=== PATIENT | female | born 1960 | race African-American/Black ===

== ENCOUNTER 2017-07-20 10:58 | Emergency (ER) | payer SELFPAY ==
[2017-07-20 11:01] VITALS: BP 161/86; PULSE 71; RESP 14; TEMP 98.2; O2SAT 98
--- NOTE | 2017-07-20 12:18 | PD ---
HPI Chief Complaint: Medication Refill Request Time Seen by Provider: 12:11 Travel History International Travel<30 days: No Contact w/Intl Traveler<30days: No Traveled to known affect area: No History of Present Illness HPI 57-year-old female presents to emergency department requesting a refill of her blood pressure medication. States that she has been out of her medication for a couple of days and has had multiple episodes of high blood pressure and she would like to be treated this point. Patient denies any other issues regarding her blood pressure. Denies headache, dizziness, blurred vision, nausea or vomiting. She is also concerned about a rash that she has on her left upper chest and back. States that she had shingles at that area last year but still has pain in the area. Currently she has been scratching the area because it has been burning and itching. Patient states the pain is mild but is concerned this is a serious condition. Patient denies fever, chills, chest pain, shortness of breath. She has no other complaints today. She is from [place] along with her primary care physician. [facility] Past Medical History Cardiovascular Problems: Yes (HTN) Diabetes: Yes Patient Takes Glucophage: No Social History Alcohol Use: Yes (4 BEERS A DAY ) Tobacco Use: Yes Substance Use: No Allergies-Medications (Allergen,Severity, Reaction): Coded Allergies: No Known Allergies (Unverified , 07/20/17) Reported Meds & Prescriptions Reported Meds & Active Scripts Active Neurontin (Gabapentin) 100 Mg Cap 100 Mg PO BID [address] while on this medication. Use only as directed and as needed. Amlodipine (Amlodipine Besylate) 10 Mg Tab 10 Mg PO DAILY Review of Systems Except as stated in HPI: all other systems reviewed are Neg Physical Exam Narrative GENERAL: Well-nourished, well-developed patient. SKIN: Focused skin assessment warm/dry. Left upper chest-obvious deep excoriation without exudate or edema. Areas of healing around the posterior neck and superior aspect of the posterior shoulder. No evidence of lymphangitic Spread or cellulitis. To the left of the rash is a port. HEAD: Normocephalic. EYES: No scleral icterus. No injection or drainage. NECK: Supple, trachea midline. No JVD or lymphadenopathy. GASTROINTESTINAL: Abdomen soft, non-tender, nondistended. MUSCULOSKELETAL: No cyanosis, or edema. BACK: Nontender without obvious deformity. No CVA tenderness. Data Data Last Documented VS Vital Signs Date Time Temp Pulse Resp B/P (MAP) Pulse Ox O2 Delivery O2 Flow Rate FiO2 07/20/17 11:01 98.2 71 14 161/86 (111) 98 Orders Orders Ed Discharge Order (07/20/17 12:20) MDM Medical Decision Making Medical Screen Exam Complete: Yes Emergency Medical Condition: Yes Differential Diagnosis Posthepatic neuralgia versus cellulitis versus erysipelas High blood pressure versus malignant hypertension versus accelerated hypertension Narrative Course 57-year-old female presents to emergency department requesting a refill of her blood pressure medication. States that she has been out of her medication for a couple of days and has had multiple episodes of high blood pressure and she would like to be treated this point. Patient denies any other issues regarding her blood pressure. Denies headache, dizziness, blurred vision, nausea or vomiting. She is also concerned about a rash that she has on her left upper chest and back. States that she had shingles at that area last year but still has pain in the area. Currently she has been scratching the area because it has been burning and itching. Patient states the pain is mild but is concerned this is a serious condition. Patient denies fever, chills, chest pain, shortness of breath. She has no other complaints today. She is from [place] along with her primary care physician. Vital signs stable, blood pressure slightly elevated Physical exam- consistent with irritation to the left upper chest and back. Excoriations present without evidence of cellulitis or erysipelas. She has history of cancer but is no longer being treated. She still has the port in place. Amlodipine refill today. Prescribed Neurontin for her postherpetic neuralgia. Advised extreme caution when using this medication. Patient to follow up with her primary care physician within 2-3 days. Return to the emergency department for worsening symptoms. Diagnosis Primary Impression: HTN (hypertension) Qualified Codes: I10 - Essential (primary) hypertension Additional Impressions: Post herpetic neuralgia Encounter for medication refill Referrals: [facility] Additional Instructions: Follow-up with her primary care physician as soon as possible. Use pain medication sparingly. If her symptoms worsen or persists return to the emergency department Scripts Gabapentin (Neurontin) 100 Mg Cap 100 MG PO BID for 10 Days, #20 CAP 0 [address]ills [address] while on this medication. Use only as directed and as needed. Prov: Ward Fairchild MD 07/20/17 Amlodipine (Amlodipine) 10 Mg Tab 10 MG PO DAILY for Blood Pressure Management, #30 TAB 0 Refills Prov: Ward Fairchild MD 07/20/17 Disposition: 01 DISCHARGE HOME Condition: Stable Kimberley Lara Jul 20, 2017 12:18
[2017-07-20] MEDS ORDERED: NEUR100C PO (12:28)
[2017-07-20] MEDS ORDERED: AMLO10TA2 PO (12:28)
== END 2017-07-20 12:42 | disposition home or self-care (01) ==
LOC: NEPK 10:58
DX: Z76.0 Encounter for issue of repeat prescription (principal); I10 Essential (primary) hypertension; B02.29 Other postherpetic nervous system involvement; R21 Rash and other nonspecific skin eruption; E11.9 Type 2 diabetes mellitus without complications; Z72.0 Tobacco use; Z79.899 Other long term (current) drug therapy
CPT/HCPCS: 99281

== ENCOUNTER 2017-09-03 10:33 | Emergency (ER) | payer SELFPAY ==
[~2017-09-03] VITALS: Ht 167.6 cm; Wt 54.5 kg
[2017-09-03 10:33] VITALS: BP 105/64; PULSE 94; RESP 18; TEMP 102.5; O2SAT 94
[~2017-09-03 10:33] MED LIST: AMLO10TA2 PO; NEUR100C PO
[2017-09-03 10:50] VITALS: BP 148/75; PULSE 97; RESP 18; TEMP 100.5; O2SAT 98
--- NOTE | 2017-09-03 11:39 | PD ---
HPI Chief Complaint: Cold / Flu Symptoms Time Seen by Provider: 11:03 Travel History International Travel<30 days: No Contact w/Intl Traveler<30days: No Traveled to known affect area: No History of Present Illness HPI 57-year-old female female presents emergency department for evaluation of cough and nasal congestion 1 week. Patient states she is coughing up thick white phlegm intermittently. She states the cough is worse at night. She still smokes a pack cigarettes a day. She is not sure if she has been running fevers at home however she is febrile here in triage in our facility. Patient states she has a lot of sinus pressure and has intermittent headaches. Patient has history of diabetes and cancer. Patient states she is unsure what type of cancer was. She did state that she received chemotherapy and radiation last year for though. Patient has a left upper chest port still in place. Patient is complaining of body aches and is restless on the stretcher. PFSH Past Medical History Cancer: Yes ("throat last year") Cardiovascular Problems: Yes (HTN) Diabetes: Yes Patient Takes Glucophage: Yes Social History Alcohol Use: Yes (4 BEERS A DAY ) Tobacco Use: Yes (1 ppd) Substance Use: No Allergies-Medications (Allergen,Severity, Reaction): Coded Allergies: No Known Allergies (Unverified , 07/20/17) Reported Meds & Prescriptions Reported Meds & Active Scripts Active Azithromycin 250 Mg Tab 250 Mg PO DIRECTED Take 2 tabs (500 mg) on day 1 then 1 tab daily x 4 days. Neurontin (Gabapentin) 100 Mg Cap 100 Mg PO BID [address] while on this medication. Use only as directed and as needed. Amlodipine (Amlodipine Besylate) 10 Mg Tab 10 Mg PO DAILY Review of Systems Except as stated in HPI: all other systems reviewed are Neg General / Constitutional: Positive: Fever Respiratory: Positive: Cough Physical Exam Narrative GENERAL: Well-nourished, well-developed 57-year-old female in no acute respiratory distress. Coughing intermittent throughout physical exam. SKIN: Focused skin assessment warm/dry. HEAD: Atraumatic. Normocephalic. EYES: Pupils equal and round. No scleral icterus. No injection or drainage. ENT: No nasal bleeding or discharge. Mucous membranes pink and moist. NECK: Trachea midline. No JVD. CARDIOVASCULAR: Regular rate and rhythm. No murmur appreciated. RESPIRATORY: No accessory muscle use. Clear to auscultation. Breath sounds equal bilaterally. GASTROINTESTINAL: Abdomen soft, non-tender, nondistended. Hepatic and splenic margins not palpable. MUSCULOSKELETAL: No obvious deformities. No clubbing. No cyanosis. No edema. NEUROLOGICAL: Awake and alert. No obvious cranial nerve deficits. Motor grossly within normal limits. Normal speech. PSYCHIATRIC: Anxious mood and affect. Restless in stretcher. Data Data Last Documented VS Vital Signs Date Time Temp Pulse Resp B/P (MAP) Pulse Ox O2 Delivery O2 Flow Rate FiO2 09/03/17 13:01 100.3 98 18 183/82 (115) 97 Room Air Orders Orders Electrocardiogram (09/03/17 11:14) Complete Blood Count With Diff (09/03/17 11:14) Comprehensive Metabolic Panel (09/03/17 11:14) Lactic Acid Sepsis Protocol (09/03/17 11:14) Magnesium (Mg) (09/03/17 11:14) Ckmb (Isoenzyme) Profile (09/03/17 11:14) Troponin I (09/03/17 11:14) Urinalysis - C+S If Indicated (09/03/17 11:14) Influenzae A/B Antigen (09/03/17 11:14) Blood Culture (09/03/17 11:14) Chest, Single Ap (09/03/17 11:14) Blood Glucose (09/03/17 11:14) Ecg Monitoring (09/03/17 11:14) Iv Access Insert/Monitor (09/03/17 11:14) Oximetry (09/03/17 11:14) Oxygen Administration (09/03/17 11:14) Sodium Chlor 0.9% 1000 Ml Inj (Ns 1000 M (09/03/17 12:15) CKMB (09/03/17 11:23) CKMB% (09/03/17 11:23) Ibuprofen (Motrin) (09/03/17 13:00) Ed Discharge Order (09/03/17 13:36) Labs Laboratory Tests Test 09/03/17 11:20 09/03/17 11:23 Lactic Acid Level 1.8 mmol/L White Blood Count 8.2 TH/MM3 Red Blood Count 4.50 MIL/MM3 Hemoglobin 14.5 GM/DL Hematocrit 42.5 % Mean Corpuscular Volume 94.3 FL Mean Corpuscular Hemoglobin 32.3 PG Mean Corpuscular Hemoglobin Concent 34.2 % Red Cell Distribution Width 14.3 % Platelet Count 287 TH/MM3 Mean Platelet Volume 9.0 FL Neutrophils (%) (Auto) 85.4 % Lymphocytes (%) (Auto) 8.1 % Monocytes (%) (Auto) 5.4 % Eosinophils (%) (Auto) 0.1 % Basophils (%) (Auto) 1.0 % Neutrophils # (Auto) 7.0 TH/MM3 Lymphocytes # (Auto) 0.7 TH/MM3 Monocytes # (Auto) 0.4 TH/MM3 Eosinophils # (Auto) 0.0 TH/MM3 Basophils # (Auto) 0.1 TH/MM3 CBC Comment DIFF FINAL Differential Comment Blood Urea Nitrogen 25 MG/DL Creatinine 1.65 MG/DL Random Glucose 162 MG/DL Total Protein 8.1 GM/DL Albumin 3.5 GM/DL Calcium Level 9.0 MG/DL Magnesium Level 2.1 MG/DL Alkaline Phosphatase 142 U/L Aspartate Amino Transf (AST/SGOT) 57 U/L Alanine Aminotransferase (ALT/SGPT) 32 U/L Total Bilirubin 0.4 MG/DL Sodium Level 130 MEQ/L Potassium Level 4.0 MEQ/L Chloride Level 92 MEQ/L Carbon Dioxide Level 28.1 MEQ/L Anion Gap 10 MEQ/L Estimat Glomerular Filtration Rate 39 ML/MIN Total Creatine Kinase 166 U/L Creatine Kinase MB 0.8 NG/ML Troponin I LESS THAN 0.02 NG/ML MDM Medical Decision Making Medical Screen Exam Complete: Yes Emergency Medical Condition: Yes Differential Diagnosis Differential diagnosis include but not limited to pneumonia, influenza, bronchitis, URI, viral syndrome, sepsis Narrative Course Patient placed on monitor and IV obtained. Blood work sent to the lab. CBC, CMP , lactic acid, magnesium, troponin, CK-MB, U/A and influenza ordered and pending. Chest x-ray ordered and pending. 1L NS bolus given. Ibuprofen given. CBC shows no acute abnormality CMP shows mild hyponatremia, 1L NS bolus already administered Lactic Acid within normal limits at 1.8 Mag within normal limits at 2.1. Trop is within normal limits at less than 0.02 CK-MB is within normal limits 0.8 Influenza is positive for flu A antigen. Chest x-ray is clear. Patient feeling much relief after ibuprofen and normal saline bolus. Patient case discussed with my attending, Dr. Milligan. Tamiflu treatment deferred due to length of time symptoms have been present. Patient given a Z-Willy for bronchitis and presents secondary infection due to her comorbidities. Patient discharged home with instructions to stop smoking, supportive care and to return to the emergency department with any worsening condition. Patient verbalizes understanding of reasons to return to the ED and states she will with worsening condition. Diagnosis Primary Impression: Influenza Referrals: Primary Care Physician Patient Instructions: General Instructions, Influenza (DC) Additional Instructions: Please return to emergency department if your symptoms return or worsen. Follow up with your primary care provider. Supportive care, stay hydrated, get enough rest, diet as tolerated. Alternate ibuprofen and Tylenol as needed for pain or fevers. Med/Other Pt SpecificInfo: Prescription(s) given Scripts Azithromycin (Azithromycin) 250 Mg Tab 250 MG PO DIRECTED for Infection, #6 TAB 0 Refills Take 2 tabs (500 mg) on day 1 then 1 tab daily x 4 days. Prov: Abbey Rice 09/03/17 Disposition: DISCHARGE HOME Condition: Stable Abbey Rice Sep 03, 2017 11:39
[2017-09-03 11:40] VITALS: RESP 18; O2SAT 99
[2017-09-03 11:48] LABS: BASOPHIL # 0.1 TH/MM3 (0-0.2); EOSINOPHIL % 0.1 % (0.0-4.0); HEMATOCRIT 42.5 % (35.0-46.0); HEMOGLOBIN 14.5 GM/DL (11.6-15.3); LYMPH % 8.1 % (9.0-44.0); LYMPHOCYTE # 0.7 TH/MM3 (1.0-4.8); MEAN CELL VOLUME 94.3 FL (80.0-100.0); MEAN CORPUSCULAR HEMOGLOBIN 32.3 PG (27.0-34.0); MEAN CORPUSCULAR HGB CONC 34.2 % (32.0-36.0); MONO % 5.4 % (0.0-8.0); MONOCYTE # 0.4 TH/MM3 (0-0.9); NEUT % 85.4 % (16.0-70.0); PLATELET COUNT 287 TH/MM3 (150-450); RED CELL DISTRIBUTION WIDTH 14.3 % (11.6-17.2); WHITE BLOOD COUNT 8.2 TH/MM3 (4.0-11.0)
[2017-09-03 12:11] LABS: ALBUMIN 3.5 GM/DL (3.4-5.0); AST (GOT) 57 U/L (15-37); BICARBONATE 28.1 MEQ/L (21.0-32.0); BLOOD UREA NITROGEN 25 MG/DL (7-18); CHLORIDE 92 MEQ/L (98-107); CREATININE 1.65 MG/DL (0.50-1.00); GLOMERULAR FILTRATION RATE 39 ML/MIN (>89); GLUCOSE,RANDOM 162 MG/DL (74-106); MAGNESIUM 2.1 MG/DL (1.5-2.5); SODIUM (NA) 130 MEQ/L (136-145)
[2017-09-03] MEDS ORDERED: SODIUM CHLOR 0.9% 1000 ML INJ 1,000 ML IV ONE (12:15)
[2017-09-03 12:27] LABS: ALKALINE PHOSPHATASE 142 U/L (45-117); ALT (GPT) 32 U/L (10-53); TOTAL BILIRUBIN ADULT 0.4 MG/DL (0.2-1.0); TOTAL PROTEIN 8.1 GM/DL (6.4-8.2); TROPONIN I LESS THAN 0.02 NG/ML (0.02-0.05)
--- NOTE | 2017-09-03 12:32 | RADRPT ---
EXAM DATE/TIME: 09/03/2017 11:36 [facility] COMPARISON: No previous studies available for comparison. INDICATIONS : Cough, congestion, fever. MEDICAL HISTORY : None. SURGICAL HISTORY : None. ENCOUNTER: Initial ACUITY: 1 week PAIN SCORE: 0/10 LOCATION: Bilateral chest FINDINGS: A single view of the chest demonstrates the lungs to be symmetrically aerated without evidence of mas s, infiltrate or effusion. The cardiomediastinal contours are unremarkable. Osseous structures are intact. The left-sided [id number] tip is projected over the distal superior vena cava. No evidence of pneumothorax. CONCLUSION: The lungs are clear. Alejandro Chen MD on September 03, 2017 at 12:30 Board Certified Radiologist. This report was verified electronically.
[2017-09-03] MEDS ORDERED: IBUPROFEN 600 MG TAB PO ONE (13:00)
[2017-09-03 13:01] VITALS: BP 183/82; PULSE 98; RESP 18; TEMP 100.3; O2SAT 97
[2017-09-03] MEDS ORDERED: AZIT250T3 PO (13:11)
--- NOTE | 2017-09-03 13:11 | PD ---
Data Data Last Documented VS Vital Signs Date Time Temp Pulse Resp B/P (MAP) Pulse Ox O2 Delivery O2 Flow Rate FiO2 09/03/17 13:01 100.3 98 18 183/82 (115) 97 Room Air Orders Orders Electrocardiogram (09/03/17 11:14) Complete Blood Count With Diff (09/03/17 11:14) Comprehensive Metabolic Panel (09/03/17 11:14) Lactic Acid Sepsis Protocol (09/03/17 11:14) Magnesium (Mg) (09/03/17 11:14) Ckmb (Isoenzyme) Profile (09/03/17 11:14) Troponin I (09/03/17 11:14) Urinalysis - C+S If Indicated (09/03/17 11:14) Influenzae A/B Antigen (09/03/17 11:14) Blood Culture (09/03/17 11:14) Chest, Single Ap (09/03/17 11:14) Blood Glucose (09/03/17 11:14) Ecg Monitoring (09/03/17 11:14) Iv Access Insert/Monitor (09/03/17 11:14) Oximetry (09/03/17 11:14) Oxygen Administration (09/03/17 11:14) Sodium Chlor 0.9% 1000 Ml Inj (Ns 1000 M (09/03/17 12:15) CKMB (09/03/17 11:23) CKMB% (09/03/17 11:23) Ibuprofen (Motrin) (09/03/17 13:00) Ed Discharge Order (09/03/17 13:36) Labs Laboratory Tests Test 09/03/17 11:20 09/03/17 11:23 09/03/17 14:07 Lactic Acid Level 1.8 mmol/L White Blood Count 8.2 TH/MM3 Red Blood Count 4.50 MIL/MM3 Hemoglobin 14.5 GM/DL Hematocrit 42.5 % Mean Corpuscular Volume 94.3 FL Mean Corpuscular Hemoglobin 32.3 PG Mean Corpuscular Hemoglobin Concent 34.2 % Red Cell Distribution Width 14.3 % Platelet Count 287 TH/MM3 Mean Platelet Volume 9.0 FL Neutrophils (%) (Auto) 85.4 % Lymphocytes (%) (Auto) 8.1 % Monocytes (%) (Auto) 5.4 % Eosinophils (%) (Auto) 0.1 % Basophils (%) (Auto) 1.0 % Neutrophils # (Auto) 7.0 TH/MM3 Lymphocytes # (Auto) 0.7 TH/MM3 Monocytes # (Auto) 0.4 TH/MM3 Eosinophils # (Auto) 0.0 TH/MM3 Basophils # (Auto) 0.1 TH/MM3 CBC Comment DIFF FINAL Differential Comment Blood Urea Nitrogen 25 MG/DL Creatinine 1.65 MG/DL Random Glucose 162 MG/DL Total Protein 8.1 GM/DL Albumin 3.5 GM/DL Calcium Level 9.0 MG/DL Magnesium Level 2.1 MG/DL Alkaline Phosphatase 142 U/L Aspartate Amino Transf (AST/SGOT) 57 U/L Alanine Aminotransferase (ALT/SGPT) 32 U/L Total Bilirubin 0.4 MG/DL Sodium Level 130 MEQ/L Potassium Level 4.0 MEQ/L Chloride Level 92 MEQ/L Carbon Dioxide Level 28.1 MEQ/L Anion Gap 10 MEQ/L Estimat Glomerular Filtration Rate 39 ML/MIN Total Creatine Kinase 166 U/L Creatine Kinase MB 0.8 NG/ML Troponin I LESS THAN 0.02 NG/ML Urine Color YELLOW Urine Turbidity CLEAR Urine pH 6.5 Urine Specific Jeannette 1.013 Urine Protein 100 mg/dL Urine Glucose (UA) TRACE mg/dL Urine Ketones NEG mg/dL Urine Occult Blood TRACE Urine Nitrite NEG Urine Bilirubin NEG Urine Urobilinogen LESS THAN 2.0 MG/DL Urine Leukocyte Esterase NEG Urine RBC 3 /hpf Urine WBC 1 /hpf Urine Squamous Epithelial Cells 1 /hpf Microscopic Urinalysis Comment CATH-CULT NOT IND MDM Medical Record Reviewed: Yes Supervised Visit with SHANTEL: Yes Narrative Course I, Dr. Milligan, have reviewed the advance practice practitioner's documentation and am in agreement, met with the patient face to face, made the diagnosis, and the medical decision making was done by me. *My assessment and Findings: pt w influenza pt is stable for dc home return precautions discussed Diagnosis Primary Impression: Influenza Referrals: Primary Care Physician Patient Instructions: General Instructions, Influenza (DC) Additional Instruction: Please return to emergency department if your symptoms return or worsen. Follow up with your primary care provider. Supportive care, stay hydrated, get enough rest, diet as tolerated. Alternate ibuprofen and Tylenol as needed for pain or fevers. Scripts Azithromycin (Azithromycin) 250 Mg Tab 250 MG PO DIRECTED for Infection, #6 TAB 0 Refills Take 2 tabs (500 mg) on day 1 then 1 tab daily x 4 days. Prov: KrystalJudithAbbeytee WALKER 09/03/17 Disposition: 01 DISCHARGE HOME Condition: Stable Isaac Milligan MD Sep 03, 2017 13:11
[2017-09-03 14:19] LABS: BILIRUBIN, URINE NEG (NEG); BLOOD, URINE TRACE (NEG); GLUCOSE,URINE TRACE mg/dL (NEG); KETONE, URINE NEG (NEG); NITRITE,URINE NEG (NEG); PH, URINE 6.5 (5.0-8.5); SQUAMOUS EPITHELIAL CELL URINE 1 /hpf (0-5); URINE COLOR YELLOW (YELLW/STRAW); URINE LEUKOCYTE ESTERASE NEG (NEG)
--- NOTE | 2017-09-05 14:06 | EKG ---
Date Performed: 09/03/2017 Time Performed: 12:10:11 PTAGE: 57 years EKG: SINUS TACHYCARDIA NONSPECIFIC ATRIAL ABNORMALITY NONSPECIFIC ST-T WAVE CHANGES, CANNOT EXCL UDE ISCHEMIA LOW LIMB LEAD VOLTAGE ABNORMAL ECG NO PREVIOUS TRACING DOCTOR: Ian Stanley Interpretating Date/Time 09/05/2017 14:04:58
== END 2017-09-03 14:17 | disposition home or self-care (01) ==
LOC: NEPC 10:33
DX: J11.1 Influenza due to unidentified influenza virus with other respiratory manifestations (principal); E87.1 Hypo-osmolality and hyponatremia; R51 Headache; E11.9 Type 2 diabetes mellitus without complications; R00.0 Tachycardia, unspecified; R94.31 Abnormal electrocardiogram [ECG] [EKG]; I10 Essential (primary) hypertension; F17.200 Nicotine dependence, unspecified, uncomplicated; Z79.899 Other long term (current) drug therapy
CPT/HCPCS: 71010; 80053; 81001; 82550; 82552; 83605; 83735; 84484; 85025; 87040; 87804; 93005; 99284; J7030

== ENCOUNTER 2017-10-04 08:20 | Inpatient (IN) | payer MEDICAID, OTHER ==
[~2017-10-04] VITALS: Ht 165.1 cm; Wt 48.3 kg
[2017-10-04] VITALS (7 sets, daily range): BP systolic 113–195; BP diastolic 63–99; PULSE 77–107; RESP 16–22; TEMP 97.5–99; O2SAT 97–100
[~2017-10-04 08:20] MED LIST changes: +AZIT250T3 PO
[2017-10-04] MEDS ORDERED: SODIUM CHLOR 0.9% 1000 ML INJ 1,000 ML IV SCH (09:16)
--- NOTE | 2017-10-04 09:16 | PD ---
HPI Chief Complaint: General Weakness Time Seen by Provider: 09:09 Travel History International Travel<30 days: No Contact w/Intl Traveler<30days: No Traveled to known affect area: No History of Present Illness HPI Patient 57-year-old female presents emergency department for evaluation of generalized weakness and body aches decreased appetite and high blood sugar. Patient states she is a diabetic she has been without her insulin for the past 3 weeks, recently relocated to the area from [place], she was staying with family but the family recently evicted her and she is going to be sleeping on the street. Other than diabetes she states she has a history of high blood pressure, no history of HIV hepatitis. She also complains of a mild abdominal cramping. A rash on the left side of her chest. States symptoms are moderate, gradually worsening over the past 3 weeks, all over her body, PFSH Past Medical History Cancer: Yes ("throat last year") Cardiovascular Problems: Yes (HTN) Chemotherapy: Yes Diabetes: Yes Patient Takes Glucophage: Yes Diminished Hearing: No Hypertension: Yes Tetanus Vaccination: Unknown Influenza Vaccination: No ?: Not Tubal Ligation: Yes Social History Alcohol Use: Yes (4 BEERS A DAY ) Tobacco Use: Yes (1 ppd) Substance Use: No Allergies-Medications (Allergen,Severity, Reaction): Coded Allergies: No Known Allergies (Unverified , 07/20/17) Reported Meds & Prescriptions Reported Meds & Active Scripts Active Neurontin (Gabapentin) 100 Mg Cap 100 Mg PO BID [address] while on this medication. Use only as directed and as needed. Amlodipine (Amlodipine Besylate) 10 Mg Tab 10 Mg PO DAILY Review of Systems Except as stated in HPI: all other systems reviewed are Neg Physical Exam Narrative GENERAL: Well-developed well-nourished female in obvious distress SKIN: Focused skin assessment warm/dry. There is a dry scaly rash on the left side of her chest, not directly overlying a report that she has in the left chest. She states that she was supposed to be on chemotherapy in the past but never took it. She is unsure why. HEAD: Atraumatic. Normocephalic. EYES: Pupils equal and round. No scleral icterus. No injection or drainage. ENT: No nasal bleeding or discharge. Mucous membranes pink and moist. NECK: Trachea midline. No JVD. CARDIOVASCULAR: Regular rate and rhythm. No murmur appreciated. RESPIRATORY: No accessory muscle use. Clear to auscultation. Breath sounds equal bilaterally. GASTROINTESTINAL: Abdomen soft, non-tender, nondistended. Hepatic and splenic margins not palpable. MUSCULOSKELETAL: No obvious deformities. No clubbing. No cyanosis. No edema. NEUROLOGICAL: Awake and alert. No obvious cranial nerve deficits. Motor grossly within normal limits. Normal speech. PSYCHIATRIC: Appropriate mood and affect; insight and judgment normal. Data Data Last Documented VS Vital Signs Date Time Temp Pulse Resp B/P (MAP) Pulse Ox O2 Delivery O2 Flow Rate FiO2 10/04/17 10:52 79 20 164/93 (116) 100 Room Air 10/04/17 08:50 97.7 Orders Orders Complete Blood Count With Diff (10/04/17 09:16) Comprehensive Metabolic Panel (10/04/17 09:16) Lipase (10/04/17 09:16) Iv Access Insert/Monitor (10/04/17 09:16) Ecg Monitoring (10/04/17 09:16) Oximetry (10/04/17 09:16) Sodium Chlor 0.9% 1000 Ml Inj (Ns 1000 M (10/04/17 09:16) Sodium Chloride 0.9% Flush (Ns Flush) (10/04/17 09:30) Electrocardiogram (10/04/17 09:16) Insulin Human Regular Inj (Novolin R Inj (10/04/17 11:45) Admit Order (Ed Use Only) (10/04/17 ) Lidocaine 2% Jelly (Xylocaine 2% Jelly) (10/04/17 12:15) Labs Laboratory Tests Test 10/04/17 09:20 White Blood Count 5.7 TH/MM3 Red Blood Count 4.74 MIL/MM3 Hemoglobin 15.6 GM/DL Hematocrit 44.0 % Mean Corpuscular Volume 92.8 FL Mean Corpuscular Hemoglobin 32.9 PG Mean Corpuscular Hemoglobin Concent 35.4 % Red Cell Distribution Width 13.8 % Platelet Count 366 TH/MM3 Mean Platelet Volume 8.6 FL Neutrophils (%) (Auto) 76.7 % Lymphocytes (%) (Auto) 16.7 % Monocytes (%) (Auto) 5.1 % Eosinophils (%) (Auto) 0.8 % Basophils (%) (Auto) 0.7 % Neutrophils # (Auto) 4.4 TH/MM3 Lymphocytes # (Auto) 1.0 TH/MM3 Monocytes # (Auto) 0.3 TH/MM3 Eosinophils # (Auto) 0.0 TH/MM3 Basophils # (Auto) 0.0 TH/MM3 CBC Comment DIFF FINAL Differential Comment Blood Urea Nitrogen 20 MG/DL Creatinine 1.50 MG/DL Random Glucose 343 MG/DL Total Protein 10.0 GM/DL Albumin 4.2 GM/DL Calcium Level 10.3 MG/DL Alkaline Phosphatase 226 U/L Aspartate Amino Transf (AST/SGOT) 36 U/L Alanine Aminotransferase (ALT/SGPT) 26 U/L Total Bilirubin 0.6 MG/DL Sodium Level 125 MEQ/L Potassium Level 3.6 MEQ/L Chloride Level 85 MEQ/L Carbon Dioxide Level 30.9 MEQ/L Anion Gap 9 MEQ/L Estimat Glomerular Filtration Rate 43 ML/MIN Lipase 164 U/L MDM Medical Decision Making Medical Screen Exam Complete: Yes Emergency Medical Condition: Yes Differential Diagnosis Hyponatremia, DKA, hyperglycemia, poor social circumstance, dehydration, malnourishment. Narrative Course 57-year-old female presents to the emergency department for evaluation of generalized weakness and body aches, has a sodium of 125, hyperglycemic to 343, no evidence of DKA, fluids and insulin were given, discussed with Dr. Bain as well as case management. Meets inpatient criteria according to CM. Diagnosis Primary Impression: Hyponatremia Additional Impression: Hyperglycemia due to type 1 diabetes mellitus Admitting Information Admitting Physician Requests: Admit Condition: Stable Stephen Marti MD Oct 04, 2017 09:16
[2017-10-04] MEDS ORDERED: SODIUM CHLORIDE 0.9% FLUSH 10 ML FLUSH IV FLUSH PRN (09:30)
[2017-10-04 09:45] LABS: AUTOMATED NEUTROPHIL # 4.4 TH/MM3 (1.8-7.7); BASOPHIL % 0.7 % (0.0-2.0); EOSINOPHIL % 0.8 % (0.0-4.0); HEMOGLOBIN 15.6 GM/DL (11.6-15.3); LYMPH % 16.7 % (9.0-44.0); MEAN CELL VOLUME 92.8 FL (80.0-100.0); MEAN CORPUSCULAR HEMOGLOBIN 32.9 PG (27.0-34.0); MEAN CORPUSCULAR HGB CONC 35.4 % (32.0-36.0); MEAN PLATELET VOLUME 8.6 FL (7.0-11.0); MONO % 5.1 % (0.0-8.0); MONOCYTE # 0.3 TH/MM3 (0-0.9); NEUT % 76.7 % (16.0-70.0); PLATELET COUNT 366 TH/MM3 (150-450); RED BLOOD COUNT 4.74 MIL/MM3 (4.00-5.30); RED CELL DISTRIBUTION WIDTH 13.8 % (11.6-17.2); WHITE BLOOD COUNT 5.7 TH/MM3 (4.0-11.0)
[2017-10-04 10:23] LABS: ALT (GPT) 26 U/L (10-53)
[2017-10-04 10:25] LABS: ALKALINE PHOSPHATASE 226 U/L (45-117); TOTAL BILIRUBIN ADULT 0.6 MG/DL (0.2-1.0)
[2017-10-04 10:28] LABS: ALBUMIN 4.2 GM/DL (3.4-5.0); AST (GOT) 36 U/L (15-37); BICARBONATE 30.9 MEQ/L (21.0-32.0); BLOOD UREA NITROGEN 20 MG/DL (7-18); CALCIUM 10.3 MG/DL (8.5-10.1); CHLORIDE 85 MEQ/L (98-107); GLOMERULAR FILTRATION RATE 43 ML/MIN (>89); GLUCOSE,RANDOM 343 MG/DL (74-106); SODIUM (NA) 125 MEQ/L (136-145)
[2017-10-04] MEDS ORDERED: INSULIN HUMAN REGULAR 1,000 UNITS/10 ML VIAL IV PUSH ONE (11:45)
[2017-10-04] MEDS ORDERED: DEXTROSE 50% IN WATER 50 ML VIAL(D50) IV PUSH PRN (12:15)
[2017-10-04] MEDS ORDERED: GLUCAGON 1 MG/ML VIAL OTHER PRN (12:15)
[2017-10-04] MEDS ORDERED: LIDOCAINE HCL 2% JELLY 5 ML SYRINGE TOPICAL ONE (12:15)
[2017-10-04] MEDS: INSULIN ASPART SUPPLEMENTAL SCALE SQ SCH ×2 (15:48→22:34)
--- NOTE | 2017-10-04 19:11 | EKG ---
Date Performed: 10/04/2017 Time Performed: 09:29:49 PTAGE: 57 years EKG: Sinus rhythm POSSIBLE LEFT ATRIAL ENLARGEMENT Since previous tracing, no significant change noted BORDERLINE ECG PREVIOUS TRACING : 09/03/2017 12.10 DOCTOR: Abhinav Ware Interpretating Date/Time 10/04/2017 19:10:34
--- NOTE | 2017-10-04 19:27 | HHI.HP ---
HPI Service [facility] Primary Care Physician Unknown Admission Diagnosis Hyponatremia Diagnoses: Chief Complaint: I fell Travel History International Travel<30 Days: No Contact w/Intl Traveler <30 Da: No Traveled to Known Affected Are: No History of Present Illness 57-year-old black female being admitted for hyponatremia and syncope. Patient was in her usual state of health until sometime earlier today she says she had fallen onto cement. However she does not recall reveals a mechanical fall versus a syncopal fall. But she does remember is that when she woke up there was a man standing over her who called 911. Patient denies any disorientation or confusion at that time. No reports of any bowel or bladder incontinence. Patient thought that her sugar was low and that's why this has all happened. However upon arriving to the emergency room her blood sugar was checked and it was 343. Patient states that she has been homeless for around 3 weeks, was affected by her family members. Has therefore not had medicines for 3 weeks including her insulin which she cannot remember if it is Levemir or Lantus and thinks he was taking 10 units a day. Says she is originally from [place] and recently came down here to live with family. She denies IV drug use. Denies any HIV diagnosis or hepatitis diagnosis. Review of Systems Except as stated in HPI: all other systems reviewed are Neg Past Family Social History Allergies: Coded Allergies: No Known Allergies (Unverified , 07/20/17) Physical Exam Vital Signs Vital Signs Date Time Temp Pulse Resp B/P (MAP) Pulse Ox O2 Delivery O2 Flow Rate FiO2 10/04/17 18:12 97.5 80 18 153/91 (111) 97 10/04/17 17:01 10/04/17 16:09 100 20 195/99 (131) 10/04/17 10:52 79 20 164/93 (116) 100 Room Air 10/04/17 08:50 97.7 77 22 187/89 (121) 10/04/17 08:23 99.0 107 20 168/97 (120) 97 Room Air Physical Exam VS: afebrile GENERAL: Middle-aged black female lying in bed, poor dentition, very talkative. She has some very obvious coughing spits that sounds wet but are nonproductive SKIN: Has a peeling dried bloody rash that is nonblanching on the anterior left side of her chest EYES: No scleral icterus. No injection or drainage. ENT: No nasal bleeding or discharge. CARDIOVASCULAR: Regular rate and rhythm. no murmurs RESPIRATORY: No accessory muscle use. Clear to auscultation. Breath sounds equal bilaterally. GASTROINTESTINAL: Abdomen soft, mild tenderness to palpation diffusely, nondistended Extremities: No clubbing, cyanosis, or edema. No obvious deformities. MUSCULOSKELETAL: adequate muscle bulk and tone for age and habitus NEUROLOGICAL: Awake and alert. No obvious cranial nerve deficits. No facial droop nor slurred speech noted. PSYCHIATRIC: Appropriate mood and affect; insight and judgment normal. Laboratory Laboratory Tests Test 10/04/17 09:20 White Blood Count 5.7 Red Blood Count 4.74 Hemoglobin 15.6 Hematocrit 44.0 Mean Corpuscular Volume 92.8 Mean Corpuscular Hemoglobin 32.9 Mean Corpuscular Hemoglobin Concent 35.4 Red Cell Distribution Width 13.8 Platelet Count 366 Mean Platelet Volume 8.6 Neutrophils (%) (Auto) 76.7 Lymphocytes (%) (Auto) 16.7 Monocytes (%) (Auto) 5.1 Eosinophils (%) (Auto) 0.8 Basophils (%) (Auto) 0.7 Neutrophils # (Auto) 4.4 Lymphocytes # (Auto) 1.0 Monocytes # (Auto) 0.3 Eosinophils # (Auto) 0.0 Basophils # (Auto) 0.0 CBC Comment DIFF FINAL Differential Comment Blood Urea Nitrogen 20 Creatinine 1.50 Random Glucose 343 Total Protein 10.0 Albumin 4.2 Calcium Level 10.3 Alkaline Phosphatase 226 Aspartate Amino Transf (AST/SGOT) 36 Alanine Aminotransferase (ALT/SGPT) 26 Total Bilirubin 0.6 Sodium Level 125 Potassium Level 3.6 Chloride Level 85 Carbon Dioxide Level 30.9 Anion Gap 9 Estimat Glomerular Filtration Rate 43 Lipase 164 Result Diagram: 10/04/1791910/04/17919 Caprini VTE Risk Assessment Caprini VTE Risk Assessment: Mod/High Risk (score >= 2) Caprini Risk Assessment Model Point Value = 1 Point Value = 2 Point Value = 3 Point Value = 5 Age 41-60 Minor surgery BMI > 25 kg/m2 Swollen legs Varicose veins or History of unexplained or recurrent spontaneous Oral contraceptives or hormone replacement Sepsis (< 1 month) Serious lung disease, including pneumonia (< 1 month) Abnormal pulmonary function Acute myocardial infarction Congestive heart failure (< 1 month) History of inflammatory bowel disease Medical patient at bed rest Age 61-74 Arthroscopic surgery Major open surgery (> 45 min) Laparoscopic surgery (> 45 min) Malignancy Confined to bed (> 72 hours) Immobilizing plaster cast Central venous access Age >= 75 History of VTE Family history of VTE Factor V Leiden Prothrombin [id number] Lupus anticoagulant Anticardiolipin antibodies Elevated serum homocysteine Heparin-induced thrombocytopenia Other congenital or acquired thrombophilia Stroke (< 1 month) Elective arthroplasty Hip, pelvis, or leg fracture Acute spinal cord injury (< 1 month) Prophylaxis Regimen Total Risk Factor Score Risk Level Prophylaxis Regimen 0-1 Low Early ambulation 2 Moderate Order ONE of the following: *Sequential Compression Device (SCD) *Heparin 5000 units SQ BID 3-4 Higher Order ONE of the following medications: *Heparin 5000 units SQ TID *Enoxaparin/Lovenox 40 mg SQ daily (WT < 150 kg, CrCl > 30 mL/min) *Enoxaparin/Lovenox 30 mg SQ daily (WT < 150 kg, CrCl > 10-29 mL/min) *Enoxaparin/Lovenox 30 mg SQ BID (WT < 150 kg, CrCl > 30 mL/min) AND/OR *Sequential Compression Device (SCD) 5 or more Highest Order ONE of the following medications: *Heparin 5000 units SQ TID (Preferred with Epidurals) *Enoxaparin/Lovenox 40 mg SQ daily (WT < 150 kg, CrCl > 30 mL/min) *Enoxaparin/Lovenox 30 mg SQ daily (WT < 150 kg, CrCl > 10-29 mL/min) *Enoxaparin/Lovenox 30 mg SQ BID (WT < 150 kg, CrCl > 30 mL/min) AND *Sequential Compression Device (SCD) Assessment and Plan Assessment and Plan 57-year-old black female admitted fo hyponatremia and syncope Hyponatremia - Possibly due to dehydration as well as artificial elevation with hyperglycemia - Received normal saline bolus, anticipate improvement with control of blood sugars ANNE - likely 2/2 dehydration 2/2 polyuria from DM Possible syncope - possibly due to metabolic disturbances such as hyponatremia versus an arrhythmia; I independently reviewed EKG and see sinus rhythm, will place on telemetry and consider a Holter monitor upon discharge - ordering tsh, mg, and phos and troponin, UDS - ordering CXR wet cough - CXR and DuoNeb treatments Uncontrolled diabetes - We'll obtain A1c, low-dose sliding scale for now with neuro checks and hypoglycemia protocol Atypical peeling rash - Possibly residual from shingles versus manifestation immunosuppression, consulting infectious disease HTN - resume home [facility] Physician Certification 2 Midnight Certification Type: Admission for Inpatient Services Order for Inpatient Services The services are ordered in accordance with Medicare regulations or non- Medicare payer requirements, as applicable. In the case of services not specified as inpatient-only, they are appropriately provided as inpatient services in accordance with the 2-midnight benchmark. Estimated LOS (days): 2 2 days is the estimated time the patient will need to remain in the hospital, assuming treatment plan goals are met and no additional complications. Post-Hospital Plan: Home Jayson Bain MD Oct 04, 2017 19:27
[2017-10-04 20:13] LABS: MAGNESIUM 2.4 MG/DL (1.5-2.5)
[2017-10-04 20:15] LABS: PHOSPHORUS 3.4 MG/DL (2.5-4.9)
--- NOTE | 2017-10-04 20:42 | RADRPT ---
EXAM DATE/TIME: 10/04/2017 19:55 [facility] COMPARISON: No previous studies available for comparison. INDICATIONS : Shortness of breath. MEDICAL HISTORY : Hypertension. Diabetes mellitus type I. SURGICAL HISTORY : None. ENCOUNTER: Subsequent ACUITY: 1 day PAIN SCORE: 0/10 LOCATION: Bilateral chest FINDINGS: PA and lateral views of the chest demonstrate the lungs to be symmetrically aerated without evidence of mass, infiltrate or effusion. The cardiomediastinal contours are unremarkable. Osseous structure s are intact. Left subclavian Nikdsk-t-Edwb has its tip in the superior vena cava. No pneumothorax is noted. CONCLUSION: No acute disease. Stephen Fisher MD on October 04, 2017 at 20:39 Board Certified Radiologist. This report was verified electronically.
[2017-10-04] MEDS: RESP: ALBUTEROL 2.5 MG/IPRATROPIUM 0.5 MG NEB (SCH) NEB (20:44)
[2017-10-04] MEDS: GABAPENTIN 100 MG CAP PO SCH (22:33)
[2017-10-05] VITALS (7 sets, daily range): BP systolic 114–156; BP diastolic 63–77; PULSE 20–91; RESP 16–20; TEMP 96.6–98.1; O2SAT 96–100
[2017-10-05 07:02] LABS: BICARBONATE 32.3 MEQ/L (21.0-32.0); CALCIUM 8.8 MG/DL (8.5-10.1); CREATININE 1.4 MG/DL (0.50-1.00)
[2017-10-05] MEDS: RESP: ALBUTEROL 2.5 MG/IPRATROPIUM 0.5 MG NEB (SCH) NEB ×3 (07:45→19:59)
[2017-10-05] MEDS: INSULIN ASPART SUPPLEMENTAL SCALE SQ SCH ×3 (08:00→20:17)
[2017-10-05] MEDS ORDERED: POTASSIUM CHLORIDE 20 MEQ CONTROLLED RELEASE TAB PO ONE (08:00)
[2017-10-05] MEDS: GABAPENTIN 100 MG CAP PO SCH ×2 (08:15→20:16)
--- NOTE | 2017-10-05 08:28 | PD.CONS ---
History of Present Illness Service Infectious disease Consult Requested By Dr Bain Reason for Consult Rash, ? Zoster ? Immunocompromised Primary Care Physician Unknown Diagnoses: (1) Hyperglycemia due to type 1 diabetes mellitus History of Present Illness 57/F with lnown Type 1 DM for over 20 years and h/o throat cancer treated with radiation/ chemotherapy -was admitted after a fall and high sugars. Not been on her meds for 3 weeks as visiting from out of town and ran out of meds. Foaund to have a rash- she had shingles ablout a year ago - has post herpetic neuralgia with severe scarring from the lesions Review of Systems Constitutional: COMPLAINS OF: Weight loss, Change in appetite Endocrine: COMPLAINS OF: Polydipsia, Polyuria Eyes: COMPLAINS OF: Vision loss Ears, nose, mouth, throat: DENIES: Oral lesions, Throat pain Respiratory: DENIES: Cough, Wheezing Cardiovascular: DENIES: Palpitations, Syncope Gastrointestinal: DENIES: Bloody stools, Diarrhea Genitourinary: COMPLAINS OF: Urinary frequency, DENIES: Hematuria Musculoskeletal: DENIES: Joint Swelling, Back pain Integumentary: COMPLAINS OF: Abnormal pigmentation Hematologic/lymphatic: DENIES: Lymphadenopathy Neurologic: COMPLAINS OF: Paresthesias, DENIES: Headache, Localized weakness Psychiatric: DENIES: Confusion Past Family Social History Allergies: Coded Allergies: No Known Allergies (Unverified , 07/20/17) Past Medical History Type 1 DM Throat cancer Herpes Zoster HTN Past Surgical History Port Placement over s year ago Family History Positive for Diabetes Social History H/o Smoking Visiting from [place] Physical Exam Vital Signs Vital Signs Date Time Temp Pulse Resp B/P (MAP) Pulse Ox O2 Delivery O2 Flow Rate FiO2 10/05/17 00:00 98.1 77 16 134/64 (87) 97 10/04/17 20:44 98 21 10/04/17 20:00 97.8 85 16 113/63 (80) 100 10/04/17 18:12 97.5 80 18 153/91 (111) 97 10/04/17 17:01 10/04/17 16:09 100 20 195/99 (131) 10/04/17 10:52 79 20 164/93 (116) 100 Room Air 10/04/17 08:50 97.7 77 22 187/89 (121) 10/04/17 08:23 99.0 107 20 168/97 (120) 97 Room Air Physical Exam GENERAL: This is a cachetic chronically ill patient, in no apparent distress. SKIN: Has scarring of Zoster on cheat and back of neck. Cool and dry. HEAD: Atraumatic. Normocephalic. No temporal or scalp tenderness. EYES: Pupils equal round and reactive. Extraocular motions intact. No scleral icterus. No injection or drainage. ENT: Nose without bleeding, purulent drainage or septal hematoma. Throat without erythema, tonsillar hypertrophy or exudate. Uvula midline. Airway patent. NECK: Trachea midline. No JVD or lymphadenopathy. Supple, nontender, no meningeal signs. CARDIOVASCULAR: Regular rate and rhythm without murmurs, gallops, or rubs. RESPIRATORY: Clear to auscultation. Breath sounds equal bilaterally. No wheezes , rales, or rhonchi. GASTROINTESTINAL: Abdomen soft, non-tender, nondistended. No hepato-splenomegaly , or palpable masses. No guarding. MUSCULOSKELETAL: Extremities without clubbing, cyanosis, or edema. No joint tenderness, effusion, or edema noted. No calf tenderness. Negative Homans sign bilaterally. NEUROLOGICAL: Awake and alert. Cranial nerves II through XII intact. Laboratory Laboratory Tests Test 10/04/17 09:20 10/04/17 19:42 10/04/17 22:50 10/05/17 05:00 White Blood Count 5.7 Red Blood Count 4.74 Hemoglobin 15.6 Hematocrit 44.0 Mean Corpuscular Volume 92.8 Mean Corpuscular Hemoglobin 32.9 Mean Corpuscular Hemoglobin Concent 35.4 Red Cell Distribution Width 13.8 Platelet Count 366 Mean Platelet Volume 8.6 Neutrophils (%) (Auto) 76.7 Lymphocytes (%) (Auto) 16.7 Monocytes (%) (Auto) 5.1 Eosinophils (%) (Auto) 0.8 Basophils (%) (Auto) 0.7 Neutrophils # (Auto) 4.4 Lymphocytes # (Auto) 1.0 Monocytes # (Auto) 0.3 Eosinophils # (Auto) 0.0 Basophils # (Auto) 0.0 CBC Comment DIFF FINAL Differential Comment Blood Urea Nitrogen 20 25 Creatinine 1.50 1.40 Random Glucose 343 321 Total Protein 10.0 Albumin 4.2 Calcium Level 10.3 8.8 Alkaline Phosphatase 226 Aspartate Amino Transf (AST/SGOT) 36 Alanine Aminotransferase (ALT/SGPT) 26 Total Bilirubin 0.6 Sodium Level 125 131 Potassium Level 3.6 2.6 Chloride Level 85 91 Carbon Dioxide Level 30.9 32.3 Anion Gap 9 8 Estimat Glomerular Filtration Rate 43 47 Phosphorus Level 3.4 Magnesium Level 2.4 Lipase 164 Thyroid Stimulating Hormone 3rd Gen 21.000 Troponin I LESS THAN 0.02 Urine Opiates Screen NEG Urine Barbiturates Screen NEG Urine Amphetamines Screen NEG Urine Benzodiazepines Screen NEG Urine Cocaine Screen NEG Urine Cannabinoids Screen NEG Result Diagram: 10/04/17 0920 10/05/17 0500 Assessment and Plan Problem List: (1) Post herpetic neuralgia ICD Codes: B02.29 - Other postherpetic nervous system involvement Status: Chronic Plan: Patient is a diabetic who has had treatments for Throat cancer so is pre disposed to Shingles Lesions are old and patient with some pain - so can continue Gabapentin No further work up needed at this time (2) Hyperglycemia due to type 1 diabetes mellitus ICD Codes: E10.65 - Type 1 diabetes mellitus with hyperglycemia Status: Acute Catalina Duenas MD Oct 05, 2017 08:28
[2017-10-05] MEDS ORDERED: INFLUENZA VIRUS VACCINE (QUADRIVALENT) 0.5 ML SYR IM ONE (09:00)
[2017-10-05] MEDS: LEVOTHYROXINE SODIUM 50 MCG TAB PO SCH (10:19)
--- NOTE | 2017-10-05 11:35 | HHI.PR ---
Subjective Remarks Pt states she feels lightheaded and dizzy. Denies any chest pains or SOB. Admits to a cough x 1 month. States she has been having fevers on and off but none recorded here during this admission so far. Complains of weakness and lower abdominal pain. Pt states that she has been out of her meds and doesn't what she was taking. States her Dr. is Dr. Rider [phone] or [phone] she is not sure. Objective Vitals Vital Signs Date Time Temp Pulse Resp B/P (MAP) Pulse Ox O2 Delivery O2 Flow Rate FiO2 10/05/17 08:00 96.7 20 20 156/77 (103) 99 114/76 (89) 10/05/17 07:30 98 21 10/05/17 00:00 98.1 77 16 134/64 (87) 97 10/04/17 20:44 98 21 10/04/17 20:00 97.8 85 16 113/63 (80) 100 10/04/17 18:12 97.5 80 18 153/91 (111) 97 10/04/17 17:01 10/04/17 16:09 100 20 195/99 (131) I/O 10/04/17 10/04/17 10/04/17 10/05/17 10/05/17 10/05/17 07:00 15:00 23:00 07:00 15:00 23:00 Intake Total 1000 ml 480 ml 360 ml Output Total 300 ml Balance 1000 ml 180 ml 360 ml Intake Oral 480 ml 360 ml IV Total 1000 ml Output Urine Total 300 ml # Voids 1 1 # Bowel Movements 0 Result Diagram: 10/04/17 0920 10/05/17 0500 Imaging Last Impressions Chest X-Ray 10/04/17 0000 Signed Impressions: Service Date/Time: Wednesday, October 04, 2017 19:55 - CONCLUSION: No acute disease. Stephen Fisher MD Objective Remarks VS: afebrile GENERAL: Middle-aged black female lying in bed, poor dentition CARDIOVASCULAR: Regular rate and rhythm. no murmurs RESPIRATORY: No accessory muscle use. Clear to auscultation. Breath sounds equal bilaterally. GASTROINTESTINAL: Abdomen soft, mild tenderness to palpation lower quadrants, nondistended Extremities: No edema. No obvious deformities. MUSCULOSKELETAL: adequate muscle bulk and tone for age and habitus. Sensitive to touch in right lower extremity NEUROLOGICAL: Awake and alert but appears uncomfortable. A/P Assessment and Plan 57-year-old black female admitted fo hyponatremia and syncope Hyponatremia - Possibly due to dehydration as well as artificial elevation with hyperglycemia - slowly trending up. ANNE - likely 2/2 dehydration 2/2 polyuria from DM. Cr today 1.40 Possible syncope - possibly due to metabolic disturbances such as hyponatremia versus an arrhythmia; EKG sinus rhythm, currently on telemetry and consider a Holter monitor upon discharge - TSH 21, mg and phos and troponin wnl, UDS neg. I have started pt on synthroid 50mcg daily. I have also requested that RN contact PCP office and see if we can obtain list of pt's meds as she doesn't know what she takes. - CXR neg - check influenza - check EEG, ECHO, carotid u/s wet cough - DuoNeb treatments Uncontrolled diabetes - We'll obtain A1c, low-dose sliding scale for now with neuro checks and hypoglycemia protocol. May need to start her on levemir Atypical peeling rash - Possibly residual from shingles. ID evaluated the pt Lesions are old and patient with some pain - continue Gabapentin HTN - resume home norvasc Lovenox Discharge Planning f/u on syncopal work-up. f/u on influenza Tamika Lara MD Oct 05, 2017 11:35
[2017-10-05 11:41] LABS: FREE T3 1.85 PG/ML (2.18-3.98); FREE T4 0.89 NG/DL (0.76-1.46)
[2017-10-05 14:21] LABS: TROPONIN I LESS THAN 0.02 NG/ML (0.02-0.05)
[2017-10-05] MEDS ORDERED: LOVA20TA PO (14:58)
[2017-10-05] MEDS ORDERED: FOLI400T PO (14:58)
[2017-10-05] MEDS ORDERED: GABA300C5 PO (14:58)
[2017-10-05] MEDS ORDERED: LEVEMIR SQ (14:58)
[2017-10-05] MEDS ORDERED: CETI10 PO (14:58)
[2017-10-05] MEDS ORDERED: TYLETAB34 PO (14:58)
[2017-10-05] MEDS ORDERED: B-122000 PO (14:58)
[2017-10-05] MEDS ORDERED: AMLO10TA2 PO (14:58)
[2017-10-05] MEDS ORDERED: AMIT25TA9 PO (14:58)
[2017-10-05] MEDS ORDERED: POTASSIUM CHLORIDE 25 MEQ EFFERVESCENT TAB PO ONE (15:00)
--- NOTE | 2017-10-05 15:32 | ECHRPT ---
Indication: SYNCOPE CONCLUSIONS Normal left ventricular size. Wall thickness is normal. The left ventricular systolic function is grossly normal on limited imaging. The left atrial size is mildly dilated. The right atrial size is vyke-pe-mttnsbbrfe dilated. No atrial level shunt is demonstrated by color flow Doppler interrogation. Trace mitral valve regurgitation. There is mild tricuspid valve regurgitation. The estimated pulmonary arterial pressure is 23.8 mmHg. BP: / HR: Rhythm: Sinus MEASUREMENTS (Male / Female) Normal Values Technical Quality:Fair 2D ECHO LV Diastolic Diameter PLAX 3.4 cm 4.2 - 5.9 / 3.9 - 5.3 cm LV Systolic Diameter PLAX 2.0 cm IVS Diastolic Thickness 1.0 cm 0.6 - 1.0 / 0.6 - 0.9 cm LVPW Diastolic Thickness 1.0 cm 0.6 - 1.0 / 0.6 - 0.9 cm LV Relative Wall Thickness 0.6 RV Internal Dim ED PLAX 1.8 cm LVOT Diameter 2.0 cm Aortic Root Diameter 2.8 cm LA Systolic Diameter LX 2.4 cm 3.0 - 4.0 / 2.7 - 3.8 cm DOPPLER AV Peak Velocity 96.5 cm/s AV Peak Gradient 3.7 mmHg AV Mean Gradient 3.0 mmHg AV Velocity Time Integral 21.0 cm LVOT Peak Velocity 80.5 cm/s LVOT Peak Gradient 2.6 mmHg LVOT Velocity Time Integral 17.4 cm AV Area Cont Eq vti 2.6 cm AV Area Cont Eq pk 2.6 cm Mitral E Point Velocity 64.7 cm/s Mitral A Point Velocity 64.2 cm/s Mitral E to A Ratio 1.0 LV E' Lateral Velocity 4.6 cm/s Mitral E to LV E' Lateral Ratio 14.1 LV E' Septal Velocity 4.8 cm/s Mitral E to LV E' Septal Ratio 13.5 TR Peak Velocity 186.0 cm/s TR Peak Gradient 14.0 mmHg Right Atrial Pressure 10.0 mmHg Pulmonary Artery Systolic Pressu 23.8 mmHg Right Ventricular Systolic Press 23.8 mmHg PV Peak Velocity 77.5 cm/s PV Peak Gradient 2.4 mmHg FINDINGS LEFT VENTRICLE Normal left ventricular size. Wall thickness is normal. The left ventricular systolic function is grossly normal on limited imaging. RIGHT VENTRICLE Normal right ventricular size and systolic function. LEFT ATRIUM The left atrial size is mildly dilated. RIGHT ATRIUM The right atrial size is qnso-vu-fdowblxoby dilated. ATRIAL SEPTUM No atrial level shunt is demonstrated by color flow Doppler interrogation. AORTA The aortic root and proximal ascending aorta are normal in size on limited imaging. MITRAL VALVE Trace mitral valve regurgitation. AORTIC VALVE Trileaflet aortic valve. No aortic valve stenosis or regurgitation. TRICUSPID VALVE There is mild tricuspid valve regurgitation. The estimated pulmonary arterial pressure is 23.8 mmHg. PULMONARY VALVE No pulmonary valve regurgitation or stenosis. VESSELS The inferior vena cava is normal in size. PERICARDIUM No pericardial effusion. Byron Irwin MD (Electronically Signed) Final Date:05 October 2017 15:31
--- NOTE | 2017-10-05 16:01 | RADRPT ---
EXAM DATE/TIME: 10/05/2017 14:10 [facility] COMPARISON: No previous studies available for comparison. INDICATIONS : Syncope. MEDICAL HISTORY : Hypertension. Diabetic. SURGICAL HISTORY : Tubal ligation. Right leg surgery. ENCOUNTER: Initial ACUITY: 1 day PAIN SCORE: 0/10 LOCATION: Bilateral flank PEAK SYSTOLIC VELOCITIES (cm/sec): ICA/CCA RATIO: Right: 0.7 Left: 0.7 ICA: Right: 74 Left: 113 CCA: Right: 105 Left: 160 ECA: Right: 118 Left: 197 VERTEBRAL: Right: 72 antegrade Left: 81 antegrade Elevated flow velocities and ICA/CCA ratios have been found to correlate with increased degrees of vessel stenosis, calculated as percentage of diameter relative to a normal segment of distal ICA/CCA FINDINGS: RIGHT CAROTID: No significant stenosis is visualized. Scattered plaque. The waveforms are within normal limits. LEFT CAROTID: No significant stenosis is visualized. Scattered plaque. The waveforms are within normal limits. VERTEBRAL ARTERIES: Antegrade flow is seen in both vertebral arteries. MISCELLANEOUS: None. CONCLUSION: 1. Scattered plaque but no hemodynamically significant stenosis in either carotid artery. Willard Carroll MD on October 05, 2017 at 15:58 Board Certified Radiologist. This report was verified electronically.
[2017-10-05 17:03] LABS: HEMOGLOBIN A1C 12.2 % (4.3-6.0)
[2017-10-05] MEDS ORDERED: INSULIN ASPART 1,000 UNITS/10 ML VIAL SQ ONE (18:00)
[2017-10-05 19:40] LABS: MAGNESIUM 1.9 MG/DL (1.5-2.5)
[2017-10-05] MEDS: ENOXAPARIN SODIUM 30 MG/0.3 ML SYRINGE SQ SCH (20:16)
[2017-10-05] MEDS ORDERED: INSULIN DETEMIR 100 UNITS/ML VIAL SQ SCH (21:00)
--- NOTE | 2017-10-05 21:12 | MG ---
cc: JAGDISH OWENS MD Lab No: Date: 10/05/2017 Age: Sex: F Race: ELECTROENCEPHALOGRAM RECORD NUMBER [id number] DATE OF 1960 HISTORY A 57-year-old with a history of possible syncopal type episode. DESCRIPTION Posterior rhythm demonstrating 6-8 Hz activity, 20-50 microvolts. Low amplitude being in the frontal channels. Good anterior-posterior gradient. Good EEG variability reactivity. Attenuation generalized slowing with transition into drowsy state. Good driving with photic stimulation. Single lead EKG ____ tiny sharp transients in the central parietal regions. INTERPRETATION Normal awake drowsy EEG. Clinical correlation. Jagdish Owens MD MG/KK /8:35 PM /8:46 PM
[2017-10-06 06:34] LABS: AUTOMATED NEUTROPHIL # 4.9 TH/MM3 (1.8-7.7); BASOPHIL % 0.7 % (0.0-2.0); EOSINOPHIL # 0.1 TH/MM3 (0-0.4); EOSINOPHIL % 1.5 % (0.0-4.0); HEMATOCRIT 31.8 % (35.0-46.0); HEMOGLOBIN 10.7 GM/DL (11.6-15.3); LYMPH % 18.3 % (9.0-44.0); LYMPHOCYTE # 1.2 TH/MM3 (1.0-4.8); MEAN CELL VOLUME 93.7 FL (80.0-100.0); MEAN CORPUSCULAR HEMOGLOBIN 31.6 PG (27.0-34.0); MEAN CORPUSCULAR HGB CONC 33.7 % (32.0-36.0); MEAN PLATELET VOLUME 8.9 FL (7.0-11.0); MONO % 7.4 % (0.0-8.0); MONOCYTE # 0.5 TH/MM3 (0-0.9); NEUT % 72.1 % (16.0-70.0); PLATELET COUNT 296 TH/MM3 (150-450); RED BLOOD COUNT 3.39 MIL/MM3 (4.00-5.30); RED CELL DISTRIBUTION WIDTH 13.8 % (11.6-17.2); WHITE BLOOD COUNT 6.8 TH/MM3 (4.0-11.0)
[2017-10-06] MEDS: LEVOTHYROXINE SODIUM 50 MCG TAB PO SCH (06:41)
[2017-10-06 07:25] LABS: BICARBONATE 31.2 MEQ/L (21.0-32.0); CREATININE 1.4 MG/DL (0.50-1.00)
[2017-10-06 07:30] VITALS: BP 135/66; PULSE 78; RESP 20; TEMP 96.1; O2SAT 100
[2017-10-06 07:39] VITALS: O2SAT 97
[2017-10-06] MEDS: RESP: ALBUTEROL 2.5 MG/IPRATROPIUM 0.5 MG NEB (SCH) NEB ×3 (07:39→20:38)
[2017-10-06] MEDS ORDERED: POTASSIUM CHLORIDE 10 MEQ CONTROLLED RELEASE TAB PO ONE (07:45)
[2017-10-06] MEDS: GABAPENTIN 100 MG CAP PO SCH ×2 (09:25→21:31)
[2017-10-06] MEDS: INSULIN ASPART SUPPLEMENTAL SCALE SQ SCH ×4 (09:26→21:30)
[2017-10-06] MEDS ORDERED: INSULIN DETEMIR 100 UNITS/ML VIAL SQ ONE (09:30)
[2017-10-06 11:00] VITALS: BP 141/74; PULSE 81; RESP 20; TEMP 97.9; O2SAT 99
[2017-10-06] MEDS: AMITRIPTYLINE HCL 25 MG TAB PO SCH ×2 (14:00→17:34)
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
[2017-10-06 15:00] VITALS: BP 151/73; PULSE 88; RESP 20; TEMP 98.8; O2SAT 99
[2017-10-06 20:00] VITALS: BP 158/80; PULSE 80; RESP 20; TEMP 97.8; O2SAT 100
[2017-10-06 20:38] VITALS: O2SAT 98
[2017-10-06] MEDS ORDERED: INSULIN DETEMIR 100 UNITS/ML VIAL SQ SCH ×2 (21:00)
[2017-10-06] MEDS: INSULIN DETEMIR 100 UNITS/ML VIAL SQ SCH (21:30)
[2017-10-06] MEDS: ENOXAPARIN SODIUM 30 MG/0.3 ML SYRINGE SQ SCH (21:31)
[2017-10-07] VITALS: BP 152/79; PULSE 83; RESP 20; TEMP 98.7; O2SAT 98
[2017-10-07] MEDS ORDERED: ACETAMINOPHEN 325 MG TAB PO ONE (02:15)
[2017-10-07] MEDS: LEVOTHYROXINE SODIUM 50 MCG TAB PO SCH (05:40)
[2017-10-07 06:46] LABS: CALCIUM 8.7 MG/DL (8.5-10.1)
[2017-10-07 06:47] LABS: BICARBONATE 29.8 MEQ/L (21.0-32.0); MAGNESIUM 1.8 MG/DL (1.5-2.5)
[2017-10-07 06:50] LABS: CREATININE 1.2 MG/DL (0.50-1.00)
[2017-10-07 07:50] VITALS: BP 180/102; PULSE 87; RESP 20; TEMP 97.5; O2SAT 98
[2017-10-07] MEDS: INSULIN ASPART SUPPLEMENTAL SCALE SQ SCH ×2 (08:00→12:00)
[2017-10-07] MEDS: RESP: ALBUTEROL 2.5 MG/IPRATROPIUM 0.5 MG NEB (SCH) NEB (08:14)
[2017-10-07 08:15] VITALS: O2SAT 100
[2017-10-07] MEDS: GABAPENTIN 100 MG CAP PO SCH (08:42)
[2017-10-07] MEDS: INSULIN DETEMIR 100 UNITS/ML VIAL SQ SCH (08:42)
[2017-10-07] MEDS: AMITRIPTYLINE HCL 25 MG TAB PO SCH ×2 (08:42→13:00)
[2017-10-07] MEDS ORDERED: RESP: ALBUTEROL 2.5 MG/IPRATROPIUM 0.5 MG NEB (PRN) NEB (09:00)
[2017-10-07] MEDS ORDERED: PRAVASTATIN SOD 20 MG TAB PO SCH (09:00)
[2017-10-07 11:50] VITALS: BP 138/77; PULSE 88; RESP 20; TEMP 97.4; O2SAT 99
--- NOTE | 2017-10-07 14:37 | HHI.PR ---
Subjective Remarks Patient seen and examined today for follow-up on hyponatremia, acute kidney injury, uncontrolled diabetes. Patient is improved mildly today. Her blood pressure still mildly elevated. Diabetes in better control. Sodium level has improved. Patient does not live here locally. She plans on going back to [place] tomorrow. Objective Vital Signs Date Time Temp Pulse Resp B/P (MAP) Pulse Ox O2 Delivery O2 Flow Rate FiO2 10/07/17 11:50 97.4 88 20 138/77 (97) 99 10/07/17 08:15 100 21 10/07/17 07:50 97.5 87 20 180/102 (128) 98 10/07/17 00:00 98.7 83 20 152/79 (103) 98 10/06/17 20:38 98 21 10/06/17 20:00 97.8 80 20 158/80 (106) 100 10/06/17 15:00 98.8 88 20 151/73 (99) 99 I/O 10/06/17 10/06/17 10/06/17 10/07/17 10/07/17 10/07/17 07:00 15:00 23:00 07:00 15:00 23:00 Intake Total 120 ml 641 ml 490 ml Balance 120 ml 641 ml 490 ml Intake Oral 120 ml 641 ml 480 ml IV Total 10 ml # Voids 2 1 3 # Bowel Movements 0 Result Diagram: 10/06/17 0440 10/07/17 0442 Imaging Last Impressions Carotid Artery Ultrasound 10/05/17 0000 Signed Impressions: Service Date/Time: Thursday, October 05, 2017 14:10 - CONCLUSION: 1. Scattered plaque but no hemodynamically significant stenosis in either carotid artery. Willard Carroll MD Chest X-Ray 10/04/17 0000 Signed Impressions: Service Date/Time: Wednesday, October 04, 2017 19:55 - CONCLUSION: No acute disease. Stephen Fisher MD Objective Remarks GENERAL: Well-developed, well-nourished, in no acute distress. alert and orientated HEENT: Head is normocephalic without any lesions or masses noted. Facial features are symmetric. Eyes: Extraocular muscles are intact. Conjunctivae were clear. NECK: Supple without any masses. Trachea midline no deviation. No JVD, CARDIAC: Regular rhythm, regular rate. S1/S2 are heard. No murmurs gallops or rubs. LUNGS: Clear to auscultation bilaterally. No wheeze, rhonchi or rales. No use of accessory muscles on inspiration or expiration. ABDOMEN: Soft, nontender. Nondistended. Bowel sounds heard in all 4 quadrants. No organomegaly or masses. Negative rebound, negative guarding EXTREMITIES: No edema, pulses are equal bilaterally. No cyanosis or clubbing NEUROLOGY: Mood and affect appear appropriate. Cranial nerves II through XII grossly intact. Moving all extremities, speech is clear A/P Assessment and Plan 57-year-old black female admitted fo hyponatremia and syncope Mechanical fall versus syncope EKG sinus rhythm, Telemetry did not indicate any arrhythmia Echocardiogram was performed which did indicate normal systolic function, EEG indicated normal awake drowsy EEG Carotid ultrasound shows scattered plaques without any hemodynamically significant stenosis Physical therapy recommended home with home health care with PT if can be arranged Hyponatremia, improved Likely secondary to dehydration as well as artificial elevation with pseudohyponatremia secondary to hyperglycemia from uncontrolled diabetes Continue to monitor sodium level Uncontrolled diabetes, improved Accu-Cheks with medium dose sliding scale insulin Levemir 10 units twice daily Hemoglobin A1c 12.2 Hypothyroidism TSH 21.0 Free T4 0.89 Free T3 1 0.85 Patient was started on Synthroid 50 g, will continue 25 g daily next line notify patient to follow-up with her regular medical doctor for reevaluation in 6-8 weeks Acute renal failure likely superimposed on a chronic kidney disease Patient was started on IV fluids with improvement of renal function Avoid nephrotoxins Atypical peeling rash 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 ID evaluated the pt Lesions are old and patient with some pain - continue Gabapentin Hypertension, labile Norvasc 10 mg daily DVT prevention Christopher Salazar Oct 07, 2017 14:37
[2017-10-07] MEDS ORDERED: GABA100C4 PO (15:40)
[2017-10-07] MEDS ORDERED: AMLO10TA2 PO (15:40)
[2017-10-07] MEDS ORDERED: LEVO25TA4 PO (15:40)
[2017-10-07] MEDS ORDERED: LEVEMIR SQ (15:40)
--- NOTE | 2017-10-07 15:41 | HHI.DCPOC ---
Discharge Care Plan Diagnosis: (1) Hyperglycemia due to type 1 diabetes mellitus (2) Hyponatremia (3) Post herpetic neuralgia Goals to Promote Your Health * To prevent worsening of your condition and complications * To maintain your health at the optimal level Directions to Meet Your Goals Take your medications as prescribed Follow your dietary instruction Follow activity as directed Keep your appointments as scheduled Take your immunizations and boosters as scheduled If your symptoms worsen call your PCP, if no PCP go to Urgent Care Center or Emergency Room Smoking is Dangerous to Your Health. Avoid second hand smoke Call the 24-hour hour crisis hotline for domestic abuse at Christopher Weeks Oct 07, 2017 15:41
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
[2017-10-08] MEDS ORDERED: LEVOTHYROXINE SODIUM 25 MCG TAB PO SCH (06:00)
== END 2017-10-07 16:25 | disposition home or self-care (01) | DRG 638 ==
LOC: NEPE 08:20 → NEDA 12:04 → PH3B 17:52
PROVIDERS: ADMIT Hospitalist; ATTEND Hospitalist
DX: E10.65 Type 1 diabetes mellitus with hyperglycemia (principal); E87.1 Hypo-osmolality and hyponatremia; N17.9 Acute kidney failure, unspecified; E10.22 Type 1 diabetes mellitus with diabetic chronic kidney disease; B02.29 Other postherpetic nervous system involvement; Z68.1 Body mass index [BMI] 19.9 or less, adult; E86.0 Dehydration; R55 Syncope and collapse; R05 Cough; N18.9 Chronic kidney disease, unspecified; I12.9 Hypertensive chronic kidney disease with stage 1 through stage 4 chronic kidney disease, or unspecified chronic kidney disease; E03.9 Hypothyroidism, unspecified; R63.4 Abnormal weight loss; F17.210 Nicotine dependence, cigarettes, uncomplicated; Z91.81 History of falling; Z23 Encounter for immunization; Z92.3 Personal history of irradiation; Z59.0 Homelessness; Z79.4 Long term (current) use of insulin; Z85.819 Personal history of malignant neoplasm of unspecified site of lip, oral cavity, and pharynx
CPT/HCPCS: 71046; 80048; 80053; 80307; 82948; 83036; 83690; 83735; 84100; 84132; 84439; 84443; 84481; 84484; 85025; 87804; 90686; 93005; 93306; 93880; 94640; 94664; 95819; 96360; J1650; J1815; J7030; Q2038